=== PATIENT | female | born 1995 | race Caucasian/White ===

== ENCOUNTER 2017-09-07 14:08 | Emergency (ER) | payer SELFPAY ==
[~2017-09-07] VITALS: Ht 157.5 cm; Wt 76.4 kg
[2017-09-07 14:12] VITALS: BP 129/86
[2017-09-07 14:44] LABS: BASOPHILS # (AUTO) 0.03 x10^3/uL (0-0.1); BASOPHILS % (AUTO) 0 % (0-1); EOSINOPHILS # (AUTO) 0.04 x10^3/uL (0-0.4); EOSINOPHILS % (AUTO) 0 % (1-7); LYMPHOCYTES # (AUTO) 1.39 x10^3/uL (1-3.4); LYMPHOCYTES % (AUTO) 11 % (22-44); MD NO; MEAN CORPUSCULAR HEMOGLOBIN 29.6 pg (27.0-34.8); MEAN CORPUSCULAR HGB CONC 34.7 g/dL (32.4-35.8); MEAN CORPUSCULAR VOLUME 85.4 fL (80-100); MEAN PLATELET VOLUME 7.3 fL (7.4-10.4); MONOCYTES # (AUTO) 0.57 x10^3/uL (0.2-0.8); MONOCYTES % (AUTO) 4 % (2-9); NEUTROPHILS % (AUTO) 85 % (42-75); PLATELET COUNT 369 x10^3/uL (130-400); RED BLOOD COUNT 5.12 x10^6/uL (3.82-5.3); RED CELL DISTRIBUTION WIDTH 13.3 % (9.6-15.2)
[2017-09-07 14:51] LABS: ALANINE AMINOTRANSFERASE 73 U/L (12-78); ANION GAP 9 mmol/L (5-15); CALCIUM 8.5 mg/dL (8.5-10.1); CHLORIDE 105 mmol/L (98-107); CREATININE 0.77 mg/dL (0.55-1.02)
[2017-09-07 14:55] LABS: ALKALINE PHOSPHATASE 95 U/L (45-117); BILIRUBIN,TOTAL 0.6 mg/dL (0.2-1.0); TOTAL PROTEIN 8.4 g/dL (6.4-8.2)
[2017-09-07] MEDS ORDERED: MAALOX/HYOSCYAMINE/LIDOCAINE 45 ML BTL ONE (15:01)
[2017-09-07] MEDS ORDERED: ONDANSETRON ODT 4 MG ONE (15:01)
[2017-09-07] MEDS ORDERED: FAMOTIDINE 20 MG TABLET ONE (15:01)
[2017-09-07 15:12] LABS: MICROSCOPIC AUTO
[2017-09-07 15:13] LABS: CULTURE INDICATED? YES
[2017-09-07 15:16] LABS: INTERNATIONAL NORMALIZED RATIO 1.06 (0.93-1.1); PROTHROMBIN TIME 10.9 Seconds (9.6-11.5)
[2017-09-07] MEDS ORDERED: FAMOTIDINE 20 MG TABLET PO ONE (16:00)
[2017-09-07] MEDS ORDERED: MAALOX/HYOSCYAMINE/LIDOCAINE 45 ML BTL PO ONE (16:00)
[2017-09-07] MEDS ORDERED: ONDANSETRON ODT 4 MG PO ONE (16:00)
== END 2017-09-07 17:31 ==
LOC: ED 16:41
DX: K29.00 Acute gastritis without bleeding (principal); N30.00 Acute cystitis without hematuria
CPT/HCPCS: 36415; 80053; 81001; 83690; 84703; 85025; 85610; 85730; 87086; 99284; Q0162

== ENCOUNTER 2020-01-06 14:19 | Emergency (ER) | payer SELFPAY ==
[~2020-01-06] VITALS: Ht 157.5 cm; Wt 83.3 kg
[2020-01-06 15:03] VITALS: BP 137/83
--- NOTE | 2020-01-06 16:10 | NUR ---
PT WALKED BACK TO ROOM 43
[2020-01-06] MEDS ORDERED: LIDOCAINE-MPF 1%, 5ML ONE (16:41)
[2020-01-06] MEDS ORDERED: LIDOCAINE-MPF 1%, 5ML INFIL ONE (17:00)
[2020-01-06] MEDS ORDERED: NEOSPORIN OINT. PKT 1 PACKET ONE (17:48)
== END 2020-01-06 17:57 | disposition home or self-care (01) ==
LOC: ED 15:00
DX: S61.304A Unspecified open wound of right ring finger with damage to nail, initial encounter (principal); W18.30XA Fall on same level, unspecified, initial encounter; Y93.89 Activity, other specified; Y92.009 Unspecified place in unspecified non-institutional (private) residence as the place of occurrence of the external cause; Y99.8 Other external cause status
CPT/HCPCS: 11730; 99284